=== PATIENT | male | born 1965 | race Caucasian/White ===

== ENCOUNTER 2017-10-19 09:33 | Emergency (ER) | payer SELFPAY ==
[~2017-10-19] VITALS: Ht 170.2 cm; Wt 100.7 kg
[2017-10-19 09:41] VITALS: BP_SYST 161
--- NOTE | 2017-10-19 09:46 | NUR ---
Patient to ER bed 8 to gown for evaluation. Side rails up. Report given to JUANITA Jones.
--- NOTE | 2017-10-19 09:50 | NUR ---
Patient is awake, alert, oriented x 4. Patient is complaining of "discomfort" from his umbillical hernia, states pain level of 2/10, started about 2 1/2 weeks ago, states he feels constipated, had a small soft BM this morning. Patient reports a medical history of umbillical hernia, hernia surgery, left ear surgery (has hearing aid), and HTN. No s/s of distress ntoed.
--- NOTE | 2017-10-19 10:08 | NUR ---
ER Dr. Dunbar at bedside examining patient.
[2017-10-19 10:25] VITALS: BP_SYST 161
--- NOTE | 2017-10-19 10:25 | NUR ---
Patient given written and verbal discharge instructions and verbalizes understanding. ER MD discussed with patient the results and treatment provided. Patient in stable condition. ID arm band removed. Rx of Motrin & MiraLax given. Patient educated on pain management and to follow up with PMD. Pain Scale 0/10. Opportunity for questions provided and answered. Medication side effect fact sheet provided.
== END 2017-10-19 10:25 | disposition home or self-care (01) ==
LOC: SED 09:33
DX: K46.9 Unspecified abdominal hernia without obstruction or gangrene (principal); K59.00 Constipation, unspecified; I10 Essential (primary) hypertension
CPT/HCPCS: 99282

== ENCOUNTER 2020-12-26 09:06 | Emergency (ER) | payer OTHER ==
[~2020-12-26] VITALS: Ht 170.2 cm; Wt 111.1 kg
[2020-12-26 09:15] VITALS: BP_SYST 161
--- NOTE | 2020-12-26 09:15 | NUR ---
Patient to ER bed 4 for evaluation. Side rails up. Assumed care.
--- NOTE | 2020-12-26 09:15 | NUR ---
Pt. bib with concern of swelling to right forearm since , denies any injury, only painful to touch, arm red, swollen and warm to touch
--- NOTE | 2020-12-26 09:30 | NUR ---
ER at bedside examining patient.
--- NOTE | 2020-12-26 09:36 | NUR ---
radiology at bedside for xray
[2020-12-26 10:31] LABS: BASOPHILS # (AUTO) 0.1 K/uL (0.0-0.2); BASOPHILS % (AUTO) 0.9 % (0.0-2.0); EOSINOPHILS # (AUTO) 0.3 K/uL (0.0-0.4); EOSINOPHILS % (AUTO) 2.7 % (0.0-4.0); HEMOGLOBIN 17.4 g/dL (14.0-18.0); LYMPHOCYTES # (AUTO) 1.5 K/uL (1.0-5.5); MEAN CORPUSCULAR HEMOGLOBIN 31 pg (27-31); MEAN CORPUSCULAR HGB CONC 34 % (32-36); MEAN CORPUSCULAR VOLUME 92 fL (79.0-98.0); MONOCYTES # (AUTO) 0.7 K/uL (0.0-1.0); MONOCYTES % (AUTO) 7.5 % (1.7-9.3); NEUTROPHILS # (AUTO) 6.9 K/uL (1.8-7.7); NEUTROPHILS % (AUTO) 72.9 % (40.0-70.0); PLATELET COUNT (AUTO) 213 K/uL (130-430); RED BLOOD CELL COUNT(AUTO) 5.57 MIL/uL (4.2-6.2); RED CELL DISTRIBUTION WIDTH 13.8 % (9.0-15.0); WHITE BLOOD COUNT (AUTO) 9.5 K/uL (4.8-10.8)
[2020-12-26 11:10] LABS: CALCIUM 8.8 mg/dL (8.4-11.0); CREATININE 0.97 mg/dL (0.55-1.30); POTASSIUM 4.3 mmol/L (3.5-5.1)
[2020-12-26 11:11] LABS: INR 0.9 (0.80-1.20); PROTHROMBIN TIME 9.7 SECS (9.5-12.5)
[2020-12-26 11:15] LABS: ALBUMIN 3.9 g/dL (3.4-4.8); C-REACTIVE PROTEIN QUANT 3.1 mg/dL (0-0.5)
[2020-12-26] MEDS ORDERED: IBUP-1971 PO (11:51)
[2020-12-26] MEDS ORDERED: CLIN300C12 PO (11:51)
--- NOTE | 2020-12-26 12:56 | NUR ---
Patient given written and verbal discharge instructions and verbalizes understanding. ER Dr. Shaw discussed with patient the results and treatment provided. Patient in stable condition. ID arm band removed. Rx of Clindamycin and Ibuprofen given. Patient educated on pain management and to follow up with PMD. Pain Scale 0. Opportunity for questions provided and answered. Medication side effect fact sheet provided.
[2020-12-26 12:57] VITALS: BP_SYST 131
== END 2020-12-26 12:56 | disposition home or self-care (01) ==
LOC: SED 09:06
DX: L03.113 Cellulitis of right upper limb (principal); I10 Essential (primary) hypertension
CPT/HCPCS: 36415; 80053; 83605; 85025; 85610-TC; 85730-TC; 86140; 99284